=== PATIENT | female | born 2000 | race Hispanic/Latino ===

== ENCOUNTER 2020-01-09 23:48 | Emergency (ER) | payer OTHER, SELFPAY ==
[2020-01-10] MEDS ORDERED: MAG HYDROX/AL HYDROX/SIMETH ES 30 ML SUSP UDCUP ONE ×2 (00:15→05:35)
[2020-01-10] MEDS ORDERED: PANTOPRAZOLE 40 MG/VIAL ONE (00:15)
[2020-01-10] MEDS ORDERED: ONDANSETRON HCL 4 MG/2 ML VIAL ONE (00:15)
[2020-01-10 00:21] LABS: APPEARANCE,URINE Clear (CLEAR); BILIRUBIN,URINE Negative (NEGATIVE); COLOR,URINE Dark Yellow (YELLOW); GLUCOSE, URINE (UA) Negative (NEGATIVE); KETONES,URINE >=160 mg/dL (NEGATIVE); LEUKOCYTE ESTERASE ,URINE Trace (NEGATIVE); NITRATE,URINE Negative (NEGATIVE); OCCULT BLOOD,URINE Negative (NEGATIVE); PROTEIN,URINE POS 1+ mg/dL (NEGATIVE)
[2020-01-10 00:26] LABS: BACTERIA,URINE Rare /HPF (None Seen); RBC,URINE None Seen /HPF (0-1); WBC,URINE 0-1 /HPF (0-1)
[2020-01-10 00:27] LABS: MUCUS,URINE Moderate LPF (None Seen); SQUAMOUS EPITHELIAL CELL,UR Moderate /HPF (0-2)
[2020-01-10] MEDS ORDERED: MORPHINE SULFATE 4 MG/1ML SYG ONE (00:39)
[2020-01-10] MEDS ORDERED: LORAZEPAM 2 MG/ML 1 ML VIAL ONE ×2 (01:25→05:36)
[2020-01-10 04:15] LABS: BASOPHILS % (AUTO) 0.2 % (0.0-5.0); HEMATOCRIT 38.9 % (36-48); LYMPHOCYTES % (AUTO) 6.4 % (21.0-51.0); MEAN CORPUSCULAR HEMOGLOBIN 30.8 pg (27.0-33.0); MEAN CORPUSCULAR HGB CONC 33.9 g/dL (32.0-36.0); MEAN CORPUSCULAR VOLUME 90.9 fL (80-100); NEUTROPHILS % (AUTO) 90.7 % (40.0-77.0); PLATELET COUNT (AUTO) 347 K/uL (130-400); RED BLOOD CELL COUNT(AUTO) 4.28 MIL/uL (4.00-5.50); RED CELL DISTRIBUTION WIDTH 12.6 % (11.0-15.5); WHITE BLOOD COUNT (AUTO) 17.7 K/uL (4.8-10.8)
[2020-01-10 04:20] LABS: CREATININE 1.1 mg/dL (0.5-1.5); POTASSIUM 3.5 mmol/L (3.5-5.1)
[2020-01-10 04:24] LABS: ALBUMIN 4.7 g/dL (3.5-5.0); BILIRUBIN,TOTAL 0.9 mg/dL (0.2-1.0); MAGNESIUM 1.2 mg/dL (1.80-2.40)
[2020-01-10] MEDS ORDERED: IOHEXOL-350 75 ML VIAL IV ONE (04:27)
[2020-01-10 04:38] LABS: CRP QUANTITATIVE 3.6 mg/L (0.00-9.0)
[2020-01-10] MEDS ORDERED: DIATR MEGLU/DIATRIZOATE SODIUM 30 ML BOTTLE ONE (04:39)
[2020-01-10] MEDS ORDERED: MAGNESIUM 2GM PREMIX 50ML 50 ML IV ONE (05:22)
[2020-01-10] MEDS ORDERED: LIDOCAINE HCL 2% VISCOUS 15 ML UDCUP ONE (05:35)
[2020-01-10] MEDS ORDERED: PROCHLORPERAZINE EDISYLATE 10 MG/2 ML VIAL ONE (05:35)
== END 2020-01-10 09:54 | disposition home or self-care (01) ==
LOC: EDH 23:48
DX: G89.29 Other chronic pain (principal); R10.9 Unspecified abdominal pain; Z20.828 Contact with and (suspected) exposure to other viral communicable diseases
CPT/HCPCS: 36415; 74177; 76705; 80053; 81001; 81025; 83690; 83735; 84443; 85025; 86140; 86677; 87426; 96361; 96374; 96375; 96376; 99285; C9113; J0780; J2060 ×2; J2270; J2405; J3475; Q9963; Q9967

== ENCOUNTER 2020-03-31 16:30 | Emergency (ER) | payer OTHER ==
[2020-03-31] MEDS ORDERED: ONDANSETRON 4MG INJ ONE (17:25)
[2020-03-31] MEDS ORDERED: MORPHINE 4 MG SYG ONE (17:25)
[2020-03-31] MEDS ORDERED: FAMOTIDINE 20MG VIAL IV ONE (17:26)
[2020-03-31 17:27] LABS: BASOPHILS % (AUTO) 0.2 % (0.0-5.0); HEMATOCRIT 36.3 % (36-48); LYMPHOCYTES % (AUTO) 5.3 % (21.0-51.0); MEAN CORPUSCULAR HEMOGLOBIN 30.8 pg (27.0-33.0); MEAN CORPUSCULAR HGB CONC 34.4 g/dL (32.0-36.0); MEAN CORPUSCULAR VOLUME 89.4 fL (79-99); NEUTROPHILS % (AUTO) 91.9 % (40.0-77.0); PLATELET COUNT (AUTO) 307 K/uL (130-400); RED BLOOD CELL COUNT(AUTO) 4.06 MIL/uL (4.00-5.50); RED CELL DISTRIBUTION WIDTH 12.1 % (11.0-15.5); WHITE BLOOD COUNT (AUTO) 21.1 K/uL (4.8-10.8)
[2020-03-31 17:40] LABS: CARBON DIOXIDE 20 mmol/L (21-32); CHLORIDE 103 mmol/L (101-111); GLOMERULAR FILTR. RATE CALC 74 mL/min (>60); GLUCOSE,RANDOM 142 mg/dL (70-105); POTASSIUM 3.6 mmol/L (3.5-5.1); SODIUM SERUM 140 mmol/L (136-145); UREA NITROGEN, BLOOD 14 mg/dL (7-18)
[2020-03-31 17:44] LABS: ALANINE AMINOTRANSFERASE 28 U/L (12-78); ALBUMIN 4.6 g/dL (3.5-5.0); AMYLASE 36 U/L (25-115); ASPARTATE AMINOTRANSFERASE 19 U/L (10-37); BILIRUBIN,TOTAL 0.8 mg/dL (0.2-1.0); TOTAL PROTEIN, SERUM 7.9 g/dL (6.0-8.3)
[2020-03-31 17:46] LABS: LIPASE < 50 U/L (114-286)
[2020-03-31] MEDS ORDERED: MAG/ALUM/SIMETH 30 ML UDCUP ONE (18:07)
[2020-03-31] MEDS ORDERED: LIDOCAINE HCL 2% VISCOUS 15 ML UDCUP ONE (18:07)
[2020-03-31] MEDS ORDERED: KETOROLAC 30MG VIAL (30MG/ML) ONE (18:39)
[2020-03-31] MEDS ORDERED: DiphenhydrAMINE HCL 50 MG/ML VIAL ONE (18:39)
[2020-03-31] MEDS ORDERED: PROCHLORPERAZINE 10MG/2ML INJ ONE (18:39)
== END 2020-03-31 19:38 | disposition home or self-care (01) ==
LOC: EDH 16:30
DX: K29.00 Acute gastritis without bleeding (principal)
CPT/HCPCS: 36415; 80053; 82150; 83690; 85025; 96374; 96375; 99284; J0780; J1200; J1885; J2270; J2405; J3490